=== PATIENT | female | born 1945 | race Caucasian/White ===

== ENCOUNTER 2021-09-28 09:07 | Inpatient (IN) | payer MEDICARE, MEDICAID ==
[~2021-09-28] VITALS: Ht 160 cm; Wt 101.7 kg
[2021-09-28] MEDS ORDERED: MORPHINE SULFATE 4 MG/ML CPJ (NOT FOR IM USE) IV ONE (10:00)
[2021-09-28 10:07] LABS: BASOPHILS % 1.3 % (0.0-2.0); EOSINOPHILS % 2.5 % (0.0-5.0); HEMATOCRIT. 32.6 % (36.0-48.0); HEMOGLOBIN. 10.9 g/dL (12.0-16.0); LYMPHOCYTES % 20.1 % (20.0-50.0); MEAN CORPUSCULAR HEMOGLOBIN 30.1 pg (28.0-32.0); MEAN CORPUSCULAR VOLUME 89.9 fL (81.0-99.0); MEAN PLATELET VOLUME 8.6 fl (7.4-10.4); MONOCYTES % 9.4 % (2.0-8.0); NEUTROPHILS % 66.7 % (40.0-76.0); PLATELET 356 x1000/uL (130-400); RED BLOOD CELL COUNT 3.62 mill/uL (4.2-5.4); RED CELL DISTRIBUTION WIDTH 14.6 % (11.6-14.6)
[2021-09-28 10:09] LABS: CLARITY URINE CLOUDY (CLEAR); COLOR URINE YELLOW (YELLOW); KETONES URINE NEGATIVE (NEGATIVE); LEUKOCYTE ESTERASE URINE 1+ (NEGATIVE); NITRITE URINE NEGATIVE (NEGATIVE); OCCULT BLOOD URINE NEGATIVE (NEGATIVE); PH URINE 5.5 (4.5-8.0); PROTEIN URINE NEGATIVE (NEGATIVE); SPECIFIC GRAVITY URINE 1.014 (1.005-1.030); UROBILINOGEN URINE 0.2 E.U./dL (0.2-1.0)
[2021-09-28 10:15] LABS: CHLORIDE 106 mEq/L (98-107)
[2021-09-28] MEDS ORDERED: CEFTRIAXONE 1 G PREMIX 50 ML IV ONE (11:30)
[2021-09-28] MEDS ORDERED: DOCUSATE SODIUM 100MG CAPSULE PO PRN (14:00)
[2021-09-28] MEDS ORDERED: ACETAMINOPHEN 325MG TABLET PO PRN (14:00)
[2021-09-28] MEDS ORDERED: CEFTRIAXONE 1 G PREMIX 50 ML IV SCH (14:00)
[2021-09-28] MEDS ORDERED: NA PHOS,M-B/NA PHOS,DI-BA ENEMA 118ML PR PRN (14:00)
[2021-09-28] MEDS ORDERED: IPRATROPIUM/ALBUTEROL 0.5-3(2.5)MG/3ML NEB NEB PRN (14:00)
[2021-09-28] MEDS ORDERED: CLONIDINE 0.1MG TABLET PO PRN (14:00)
[2021-09-28] MEDS ORDERED: GUAIFENESIN 200MG/10ML SUGAR FREE UDC PO PRN (14:00)
[2021-09-28] MEDS ORDERED: DEXTROSE 50% WATER 50ML SYRINGE IV PRN (14:00)
[2021-09-28] MEDS ORDERED: MAGNESIUM/ALUMINUM HYDROXIDE/SIMETHICONE 30ML UDC PO PRN (14:00)
[2021-09-28] MEDS ORDERED: ONDANSETRON HCL 4MG/2ML INJ IV PRN (14:00)
[2021-09-28] MEDS ORDERED: ENOXAPARIN 30MG/0.3ML SYR SUBCUT SCH (15:00)
[2021-09-28] MEDS: MORPHINE SULFATE 2 MG/ML CPJ (NOT FOR IM USE) IV PRN ×2 (15:37→20:37)
[2021-09-28] MEDS: SODIUM CHLORIDE 0.45% 1,000 ML IV SCH (15:38)
[2021-09-28 16:00] VITALS: BP 118/80
[2021-09-28] MEDS ORDERED: NALOXONE HCL 0.4MG/ML VIAL IV PRN (16:45)
[2021-09-28] MEDS ORDERED: LEVO100T9 PO (17:00)
[2021-09-28] MEDS ORDERED: AMLO2.5T45 PO (17:02)
[2021-09-28] MEDS ORDERED: ESCI20TA37 PO (17:02)
[2021-09-28] MEDS ORDERED: METO-385 PO (17:04)
[2021-09-28] MEDS ORDERED: HYDR-4001 MT (17:04)
[2021-09-28] MEDS ORDERED: BUSP15TA3 PO (17:05)
[2021-09-28] MEDS ORDERED: VITA-261 MT (17:05)
[2021-09-28] MEDS ORDERED: DULO30CA52 PO (17:06)
[2021-09-28] MEDS ORDERED: CARB-32 PO ×2 (17:06→17:08)
[2021-09-28] MEDS ORDERED: PREG50CA PO (17:07)
[2021-09-28] MEDS ORDERED: ASPI-1497 PO (17:07)
[2021-09-28] MEDS ORDERED: ARIP5TAB58 PO (17:09)
[2021-09-28] MEDS ORDERED: ATOR20TA65 PO (17:10)
[2021-09-28] MEDS ORDERED: MIRT-89 PO (17:11)
[2021-09-28] MEDS ORDERED: NORT25CA PO (17:11)
[2021-09-28] MEDS ORDERED: MELO-104 PO (17:12)
[2021-09-28] MEDS ORDERED: TIZA4CAP6 PO (17:12)
[2021-09-28 17:13] VITALS: BP 118/80
[2021-09-28] MEDS ORDERED: LIDO700A30 TP (17:13)
[2021-09-28] MEDS: BLOOD SUGAR DIAGNOSTIC STRIP TEST SCH ×2 (17:36→21:46)
[2021-09-28] MEDS: HYDROCODONE/ACETAMINOPHEN 5/325MG TABLET PO PRN ×2 (17:40→23:20)
[2021-09-28] MEDS: INSULIN LISPRO 100 UNITS/ML SUBCUT SCH ×2 (17:45→22:14)
[2021-09-28 20:00] VITALS: BP 149/55
[2021-09-28 20:31] LABS: CREATINE KINASE 97 IU/L (26-192); CREATINE KINASE MB FRACTION 1.4 ng/mL (0.5-3.6)
[2021-09-28] MEDS: FAMOTIDINE 20MG TABLET PO SCH (20:36)
[2021-09-28] MEDS: DIPHENHYDRAMINE 50MG/ML VIAL IV PRN (23:19)
[2021-09-29] VITALS: BP 153/61
[2021-09-29] MEDS: MORPHINE SULFATE 2 MG/ML CPJ (NOT FOR IM USE) IV PRN ×3 (01:29→20:09)
[2021-09-29 04:00] VITALS: BP 130/62
[2021-09-29] MEDS: SODIUM CHLORIDE 0.45% 1,000 ML IV SCH ×2 (04:04→17:03)
[2021-09-29] MEDS: HYDROCODONE/ACETAMINOPHEN 5/325MG TABLET PO PRN ×3 (04:05→22:14)
[2021-09-29] MEDS: BLOOD SUGAR DIAGNOSTIC STRIP TEST SCH ×4 (06:19→21:00)
[2021-09-29] MEDS: INSULIN LISPRO 100 UNITS/ML SUBCUT SCH ×4 (06:56→22:13)
[2021-09-29 08:15] VITALS: BP 120/70
[2021-09-29] MEDS: LORAZEPAM 0.5MG TABLET PO PRN ×2 (09:12→13:28)
[2021-09-29] MEDS ORDERED: CEFTRIAXONE 1,000 MG in DEXTROSE 5% WATER 50 ML IV SCH (11:00)
[2021-09-29] MEDS: CEFTRIAXONE 1,000 MG in DEXTROSE 5% WATER 50 ML IV SCH (11:31)
[2021-09-29 11:50] VITALS: BP 120/70
[2021-09-29 13:07] LABS: EOSINOPHILS % 3.6 % (0.0-5.0); HEMATOCRIT. 34.1 % (36.0-48.0); HEMOGLOBIN. 11.2 g/dL (12.0-16.0); LYMPHOCYTES % 26.1 % (20.0-50.0); MEAN CORPUSCULAR HEMOGLOBIN 30.1 pg (28.0-32.0); MEAN CORPUSCULAR VOLUME 91.6 fL (81.0-99.0); MEAN PLATELET VOLUME 9.3 fl (7.4-10.4); MONOCYTES % 8.6 % (2.0-8.0); NEUTROPHILS % 59.7 % (40.0-76.0); PLATELET 311 x1000/uL (130-400); RED BLOOD CELL COUNT 3.73 mill/uL (4.2-5.4); RED CELL DISTRIBUTION WIDTH 14.7 % (11.6-14.6)
[2021-09-29 13:16] LABS: CHLORIDE 107 mEq/L (98-107)
[2021-09-29 16:16] VITALS: BP 133/64
[2021-09-29] MEDS: ENOXAPARIN 40MG/0.4ML SYR SUBCUT SCH (17:04)
[2021-09-29] MEDS ORDERED: IOHEXOL-350 100 ML BOTTLE ONE (19:08)
[2021-09-29 20:00] VITALS: BP 125/62
[2021-09-29] MEDS: FAMOTIDINE 20MG TABLET PO SCH (22:13)
[2021-09-30] VITALS: BP 123/68
[2021-09-30] MEDS: MORPHINE SULFATE 2 MG/ML CPJ (NOT FOR IM USE) IV PRN ×4 (00:46→14:35)
[2021-09-30 04:00] VITALS: BP 133/50
[2021-09-30] MEDS: DIPHENHYDRAMINE 50MG/ML VIAL IV PRN (04:04)
[2021-09-30] MEDS: SODIUM CHLORIDE 0.45% 1,000 ML IV SCH (06:00)
[2021-09-30] MEDS: BLOOD SUGAR DIAGNOSTIC STRIP TEST SCH ×2 (06:46→11:46)
[2021-09-30] MEDS: INSULIN LISPRO 100 UNITS/ML SUBCUT SCH ×2 (06:48→11:55)
[2021-09-30 08:00] VITALS: BP 118/54
[2021-09-30] MEDS: CEFTRIAXONE 1,000 MG in DEXTROSE 5% WATER 50 ML IV SCH (10:25)
[2021-09-30 12:00] VITALS: BP 143/71
[2021-09-30] MEDS ORDERED: LIP40 MT (14:25)
[2021-09-30 15:38] VITALS: BP 143/71
[2021-09-30 16:00] VITALS: BP 127/81
[2021-09-30] MEDS: ENOXAPARIN 40MG/0.4ML SYR SUBCUT SCH (16:00)
[2021-09-30] MEDS ORDERED: ASPIRIN 81MG EC TABLET PO SCH (16:00)
[2021-09-30] MEDS ORDERED: ATORVASTATIN CALCIUM 40MG TABLET PO SCH (21:00)
== END 2021-09-30 16:15 | disposition home health service (06) | DRG 74 ==
LOC: ER 09:42 → EDBEDREQ 13:08 → EDBEDREQTM 13:08 → 8WST 13:08 → SUPCPDRO 13:56 → ENRESERV 14:52 → UNDODISIN 16:30
PROVIDERS: ADMIT Internal Medicine; ATTEND Internal Medicine
DX: G90.9 Disorder of the autonomic nervous system, unspecified (principal); N39.0 Urinary tract infection, site not specified; M48.56XA Collapsed vertebra, not elsewhere classified, lumbar region, initial encounter for fracture; E87.2 Acidosis; E86.0 Dehydration; D64.9 Anemia, unspecified; E11.65 Type 2 diabetes mellitus with hyperglycemia; G20 Parkinson's disease; G89.29 Other chronic pain; I10 Essential (primary) hypertension; M47.819 Spondylosis without myelopathy or radiculopathy, site unspecified; M85.80 Other specified disorders of bone density and structure, unspecified site; E05.90 Thyrotoxicosis, unspecified without thyrotoxic crisis or storm; E66.01 Morbid (severe) obesity due to excess calories; M54.9 Dorsalgia, unspecified; I65.22 Occlusion and stenosis of left carotid artery; E78.5 Hyperlipidemia, unspecified; Z79.891 Long term (current) use of opiate analgesic; Z86.73 Personal history of transient ischemic attack (TIA), and cerebral infarction without residual deficits; Z79.899 Other long term (current) drug therapy; Z68.39 Body mass index [BMI] 39.0-39.9, adult
CPT/HCPCS: 36415; 71045; 72100; 72170; 73700; 80053; 80061; 81003; 82550; 82553; 82962; 83605; 84145; 84484; 85025; 93005; 93306; 93880; 93970; 97162; 99291; J0696; J1200; J1650; J1815; J2270; J7060; Q9967